=== PATIENT | male | born 1935 | race Caucasian/White ===

== ENCOUNTER 2017-11-09 19:03 | Inpatient (IN) | payer OTHER, MEDICAID ==
[~2017-11-09] VITALS: Ht 175.3 cm; Wt 100.7 kg
[~2017-11-09 19:03] MED LIST: ASA; GLYBURIDE; HCTZ
[2017-11-09 21:59] LABS: BASOPHILS % 1.4 % (0.0-2.0); HEMATOCRIT. 35.6 % (42.0-52.0); HEMOGLOBIN. 11.4 g/dL (14.0-18.0); LYMPHOCYTES % 20.2 % (20.0-50.0); MEAN CORPUSCULAR HEMOGLOBIN 26.7 pg (28.0-32.0); MEAN CORPUSCULAR VOLUME 83.6 fL (80.0-94.0); MEAN PLATELET VOLUME 8.7 fl (7.4-10.4); MONOCYTES % 10.3 % (2.0-8.0); NEUTROPHILS % 65.1 % (40.0-76.0); PLATELET 234 x1000/uL (130-400); RED BLOOD CELL COUNT 4.26 mill/uL (4.7-6.1); RED CELL DISTRIBUTION WIDTH 15.4 % (11.6-14.6)
[2017-11-09 22:04] LABS: INR 1.3; PROTHROMBIN TIME 12.6 sec (9.1-11.1)
[2017-11-09 22:05] LABS: CHLORIDE 101 mEq/L (98-107)
[2017-11-09] MEDS ORDERED: HYDROCODONE/ACETAMINOPHEN 5/325MG TABLET PO PRN (23:30)
[2017-11-09] MEDS ORDERED: IPRATROPIUM/ALBUTEROL 0.5-3(2.5)MG/3ML NEB INH PRN (23:30)
[2017-11-09] MEDS ORDERED: ONDANSETRON 4MG ODT PO PRN (23:30)
[2017-11-09] MEDS ORDERED: DOCUSATE SODIUM 100MG CAPSULE PO PRN (23:30)
[2017-11-09] MEDS ORDERED: MAGNESIUM/ALUMINUM HYDROXIDE/SIMETHICONE 30ML UDC PO PRN (23:30)
[2017-11-09] MEDS ORDERED: CLONIDINE 0.1MG TABLET PO PRN (23:30)
[2017-11-10] VITALS (7 sets, daily range): BP systolic 82–119; BP diastolic 42–69
[2017-11-10] MEDS ORDERED: Advil (05:20)
[2017-11-10] MEDS ORDERED: DEXTROSE 50% WATER 50ML SYRINGE IV PRN (05:30)
[2017-11-10] MEDS: DILTIAZEM HCL 30MG TABLET PO SCH ×2 (05:51→12:56)
[2017-11-10] MEDS: BLOOD SUGAR DIAGNOSTIC STRIP TEST SCH ×4 (06:53→21:19)
[2017-11-10] MEDS: INSULIN LISPRO 100 UNITS/ML SUBCUT SCH ×4 (07:38→21:00)
[2017-11-10] MEDS ORDERED: ENOXAPARIN 30MG/0.3ML SYR SUBCUT SCH (09:00)
[2017-11-10] MEDS ORDERED: ASPIRIN 81MG EC TABLET PO SCH (09:00)
[2017-11-10 09:05] LABS: BASOPHILS % 1.7 % (0.0-2.0); EOSINOPHILS % 2.5 % (0.0-5.0); HEMATOCRIT. 34.9 % (42.0-52.0); HEMOGLOBIN. 11.2 g/dL (14.0-18.0); LYMPHOCYTES % 21.2 % (20.0-50.0); MEAN CORPUSCULAR HEMOGLOBIN 26.7 pg (28.0-32.0); MEAN PLATELET VOLUME 8.7 fl (7.4-10.4); MONOCYTES % 10.7 % (2.0-8.0); NEUTROPHILS % 63.9 % (40.0-76.0); PLATELET 235 x1000/uL (130-400); RED BLOOD CELL COUNT 4.21 mill/uL (4.7-6.1); RED CELL DISTRIBUTION WIDTH 15.5 % (11.6-14.6)
[2017-11-10] MEDS: FUROSEMIDE 40MG/4ML VIAL IV SCH ×2 (09:16→17:31)
[2017-11-10 09:25] LABS: CHLORIDE 100 mEq/L (98-107)
[2017-11-10 09:36] LABS: CREATINE KINASE MB FRACTION 2.2 ng/mL (0.5-3.6)
[2017-11-10 09:42] LABS: LDL CHOLESTEROL 75 mg/dL (5-100)
[2017-11-10 09:44] LABS: HDL CHOLESTEROL 20 mg/dL (40-59)
[2017-11-10] MEDS ORDERED: NA PHOS,M-B/NA PHOS,DI-BA ENEMA 118ML PR NR (12:15)
[2017-11-10] MEDS: POLYETHYLENE GLYCOL 3350 (17GM) 1 DOSE PACK PO SCH (12:56)
[2017-11-10] MEDS ORDERED: MAGNESIUM 1 G PREMIX 100 ML IV NR ×2 (13:00→17:00)
[2017-11-10] MEDS ORDERED: ENOXAPARIN 80MG/0.8ML SYR SUBCUT NR (14:30)
[2017-11-10] MEDS: POTASSIUM CHLORIDE 20MEQ TABLET SR PO SCH (14:41)
[2017-11-10 17:21] LABS: CREATINE KINASE MB FRACTION 1.8 ng/mL (0.5-3.6)
[2017-11-10] MEDS: DILTIAZEM HCL 60MG TABLET PO SCH (17:50)
[2017-11-10] MEDS: ACETAMINOPHEN 325MG TABLET PO PRN (19:05)
[2017-11-10] MEDS ORDERED: ESOM40CA53 MT (19:10)
[2017-11-10] MEDS ORDERED: TRAM50TA3 MT (19:10)
[2017-11-10] MEDS ORDERED: IBUP-2030 MT (19:10)
[2017-11-10] MEDS ORDERED: LISI-649 MT (19:10)
[2017-11-10] MEDS ORDERED: [UNRECOGNIZED DRUG - CODE] MT (19:10)
[2017-11-10] MEDS ORDERED: SITA100T11 MT (19:10)
[2017-11-10] MEDS ORDERED: METF850T2 MT (19:10)
[2017-11-10] MEDS ORDERED: LOVA20TA2 MT (19:10)
[2017-11-10] MEDS ORDERED: ASPI-1159 MT (19:10)
[2017-11-10] MEDS: ATORVASTATIN CALCIUM 10MG TABLET PO SCH (21:18)
[2017-11-10] MEDS: PANTOPRAZOLE 40MG DR TABLET PO SCH (21:19)
[2017-11-11] VITALS: BP 109/60
[2017-11-11 04:00] VITALS: BP 112/71
[2017-11-11] MEDS ORDERED: ENOXAPARIN 100MG/ML SYR SUBCUT SCH (06:00)
[2017-11-11] MEDS: DILTIAZEM HCL 60MG TABLET PO SCH ×4 (06:08→17:54)
[2017-11-11] MEDS: PANTOPRAZOLE 40MG DR TABLET PO SCH (06:09)
[2017-11-11] MEDS: BLOOD SUGAR DIAGNOSTIC STRIP TEST SCH ×4 (06:09→21:00)
[2017-11-11 07:30] LABS: BASOPHILS % 1.3 % (0.0-2.0); EOSINOPHILS % 2.1 % (0.0-5.0); HEMATOCRIT. 34.8 % (42.0-52.0); HEMOGLOBIN. 11.2 g/dL (14.0-18.0); MEAN CORPUSCULAR HEMOGLOBIN 26.6 pg (28.0-32.0); MEAN CORPUSCULAR VOLUME 82.8 fL (80.0-94.0); MEAN PLATELET VOLUME 8.6 fl (7.4-10.4); MONOCYTES % 11.2 % (2.0-8.0); NEUTROPHILS % 62.4 % (40.0-76.0); PLATELET 231 x1000/uL (130-400); RED CELL DISTRIBUTION WIDTH 15.1 % (11.6-14.6)
[2017-11-11] MEDS: INSULIN LISPRO 100 UNITS/ML SUBCUT SCH ×4 (07:50→20:57)
[2017-11-11 08:00] VITALS: BP 91/52
[2017-11-11] MEDS: FUROSEMIDE 40MG/4ML VIAL IV SCH ×2 (09:27→17:53)
[2017-11-11] MEDS: POLYETHYLENE GLYCOL 3350 (17GM) 1 DOSE PACK PO SCH (09:27)
[2017-11-11] MEDS: POTASSIUM CHLORIDE 20MEQ TABLET SR PO SCH (09:27)
[2017-11-11 12:00] VITALS: BP 128/62
[2017-11-11 16:00] VITALS: BP 107/71
[2017-11-11] MEDS: APIXABAN 5 MG TABLET PO SCH (17:53)
[2017-11-11] MEDS: METHYLPREDNISOLONE SOD SUCC 40 MG/ML VIAL IV SCH (17:53)
[2017-11-11 20:00] VITALS: BP 106/59
[2017-11-11] MEDS: ATORVASTATIN CALCIUM 10MG TABLET PO SCH (20:56)
[2017-11-12] VITALS: BP 93/52
[2017-11-12 04:00] VITALS: BP 98/46
[2017-11-12] MEDS: DILTIAZEM HCL 60MG TABLET PO SCH ×5 (05:58→23:50)
[2017-11-12] MEDS: METHYLPREDNISOLONE SOD SUCC 40 MG/ML VIAL IV SCH ×2 (05:59→17:30)
[2017-11-12] MEDS: PANTOPRAZOLE 40MG DR TABLET PO SCH (05:59)
[2017-11-12] MEDS: BLOOD SUGAR DIAGNOSTIC STRIP TEST SCH ×4 (06:57→21:33)
[2017-11-12 08:00] VITALS: BP 104/55
[2017-11-12] MEDS: POLYETHYLENE GLYCOL 3350 (17GM) 1 DOSE PACK PO SCH (08:48)
[2017-11-12] MEDS: FUROSEMIDE 40MG/4ML VIAL IV SCH (08:48)
[2017-11-12] MEDS: POTASSIUM CHLORIDE 20MEQ TABLET SR PO SCH (08:48)
[2017-11-12] MEDS: APIXABAN 5 MG TABLET PO SCH ×2 (08:48→17:29)
[2017-11-12] MEDS: INSULIN LISPRO 100 UNITS/ML SUBCUT SCH ×4 (08:56→21:33)
[2017-11-12 12:00] VITALS: BP 145/67
[2017-11-12 16:00] VITALS: BP 103/47
[2017-11-12] MEDS ORDERED: TEMAZEPAM 15MG CAPSULE PO PRN (18:30)
[2017-11-12] MEDS: FUROSEMIDE 40MG/4ML VIAL IVP SCH (19:38)
[2017-11-12 20:00] VITALS: BP 117/60
[2017-11-12] MEDS: ACETAMINOPHEN 325MG TABLET PO PRN (20:38)
[2017-11-12] MEDS: ATORVASTATIN CALCIUM 10MG TABLET PO SCH (20:38)
[2017-11-12] MEDS ORDERED: FUROSEMIDE 40MG TABLET PO SCH (21:00)
[2017-11-13] VITALS: BP 120/48
[2017-11-13 04:00] VITALS: BP 123/56
[2017-11-13] MEDS: DILTIAZEM HCL 60MG TABLET PO SCH ×3 (06:50→18:22)
[2017-11-13] MEDS: BLOOD SUGAR DIAGNOSTIC STRIP TEST SCH ×4 (06:50→21:29)
[2017-11-13] MEDS: PANTOPRAZOLE 40MG DR TABLET PO SCH (06:50)
[2017-11-13 08:00] VITALS: BP 137/74
[2017-11-13] MEDS: POTASSIUM CHLORIDE 20MEQ TABLET SR PO SCH (08:57)
[2017-11-13] MEDS: APIXABAN 5 MG TABLET PO SCH ×2 (08:57→18:22)
[2017-11-13] MEDS: POLYETHYLENE GLYCOL 3350 (17GM) 1 DOSE PACK PO SCH (08:58)
[2017-11-13] MEDS: FUROSEMIDE 40MG/4ML VIAL IVP SCH ×2 (08:58→18:22)
[2017-11-13] MEDS: INSULIN LISPRO 100 UNITS/ML SUBCUT SCH ×4 (08:59→21:37)
[2017-11-13 12:00] VITALS: BP 160/58
[2017-11-13 16:00] VITALS: BP 119/61
[2017-11-13] MEDS: ACETAMINOPHEN 325MG TABLET PO PRN (17:25)
[2017-11-13 20:10] VITALS: BP 107/56
[2017-11-13] MEDS: ATORVASTATIN CALCIUM 10MG TABLET PO SCH (21:36)
[2017-11-14] VITALS (8 sets, daily range): BP systolic 90–126; BP diastolic 51–73
[2017-11-14] MEDS: DILTIAZEM HCL 60MG TABLET PO SCH ×4 (06:24→18:22)
[2017-11-14] MEDS: PANTOPRAZOLE 40MG DR TABLET PO SCH (06:24)
[2017-11-14] MEDS: BLOOD SUGAR DIAGNOSTIC STRIP TEST SCH ×3 (06:24→18:22)
[2017-11-14 06:54] LABS: BASOPHILS % 0.1 % (0.0-2.0); HEMATOCRIT. 34.4 % (42.0-52.0); LYMPHOCYTES % 7.9 % (20.0-50.0); MEAN CORPUSCULAR HEMOGLOBIN 26.4 pg (28.0-32.0); MEAN CORPUSCULAR VOLUME 82.5 fL (80.0-94.0); MEAN PLATELET VOLUME 8.8 fl (7.4-10.4); PLATELET 242 x1000/uL (130-400); RED BLOOD CELL COUNT 4.17 mill/uL (4.7-6.1)
[2017-11-14 07:14] LABS: CHLORIDE 93 mEq/L (98-107)
[2017-11-14] MEDS: FUROSEMIDE 40MG/4ML VIAL IVP SCH ×2 (08:49→18:22)
[2017-11-14] MEDS: POTASSIUM CHLORIDE 20MEQ TABLET SR PO SCH (08:49)
[2017-11-14] MEDS: POLYETHYLENE GLYCOL 3350 (17GM) 1 DOSE PACK PO SCH (08:49)
[2017-11-14] MEDS: APIXABAN 5 MG TABLET PO SCH ×2 (08:49→18:22)
[2017-11-14] MEDS: INSULIN LISPRO 100 UNITS/ML SUBCUT SCH ×3 (08:51→18:25)
[2017-11-14 16:54] LABS: CLARITY URINE CLEAR (CLEAR); COLOR URINE YELLOW (YELLOW); KETONES URINE NEGATIVE (NEGATIVE); LEUKOCYTE ESTERASE URINE NEGATIVE (NEGATIVE); NITRITE URINE NEGATIVE (NEGATIVE); OCCULT BLOOD URINE NEGATIVE (NEGATIVE); PH URINE 6.5 (4.5-8.0); PROTEIN URINE NEGATIVE (NEGATIVE)
== END 2017-11-14 19:14 | disposition home or self-care (01) | DRG 682 ==
LOC: ER 19:03 → 6WST 22:51 → EDBEDREQTM 23:12 → EDBEDREQ 23:12 → ENRESERV 11-10 02:33
PROVIDERS: ADMIT Internal Medicine; ATTEND Internal Medicine
DX: N17.9 Acute kidney failure, unspecified (principal); I50.23 Acute on chronic systolic (congestive) heart failure; I13.0 Hypertensive heart and chronic kidney disease with heart failure and stage 1 through stage 4 chronic kidney disease, or unspecified chronic kidney disease; D68.59 Other primary thrombophilia; R17 Unspecified jaundice; J98.11 Atelectasis; I42.9 Cardiomyopathy, unspecified; I48.91 Unspecified atrial fibrillation; D64.9 Anemia, unspecified; E11.22 Type 2 diabetes mellitus with diabetic chronic kidney disease; E66.9 Obesity, unspecified; E78.00 Pure hypercholesterolemia, unspecified; E78.5 Hyperlipidemia, unspecified; N18.9 Chronic kidney disease, unspecified; D72.829 Elevated white blood cell count, unspecified; K21.9 Gastro-esophageal reflux disease without esophagitis; D49.511 Neoplasm of unspecified behavior of right kidney; M19.90 Unspecified osteoarthritis, unspecified site; Z79.01 Long term (current) use of anticoagulants; Z79.84 Long term (current) use of oral hypoglycemic drugs; Z79.82 Long term (current) use of aspirin; Z79.899 Other long term (current) drug therapy; Z90.49 Acquired absence of other specified parts of digestive tract; Z68.32 Body mass index [BMI] 32.0-32.9, adult
CPT/HCPCS: 36415; 71045; 74181; 76770; 80048; 80053; 80061; 81003; 82550; 82553; 82962; 83036; 83735; 83880; 84443; 84484; 85025; 85610; 87040; 87086; 93005; 93306; 93970; 96365; 96372; 99291; J1650; J1815; J1940; J2920; J3475; J7050

== ENCOUNTER 2018-06-07 19:15 | Inpatient (IN) | payer OTHER, MEDICAID ==
[~2018-06-07] VITALS: Ht 167.6 cm; Wt 113.2 kg
[~2018-06-07 19:15] MED LIST changes: -ASA; +ASPI-1159 MT; +ESOM40CA53 MT; -GLYBURIDE; -HCTZ; +LISI-649 MT; +LOVA20TA2 MT; +METF-415 MT; +SITA100T11 MT; +TRAM50TA3 MT; +[UNRECOGNIZED DRUG - CODE] MT
[2018-06-07] MEDS ORDERED: FUROSEMIDE 40MG/4ML VIAL IVP ONE (23:00)
[2018-06-08 00:09] LABS: CLARITY URINE CLEAR (CLEAR); COLOR URINE DARK YELLOW (YELLOW); KETONES URINE TRACE (NEGATIVE); LEUKOCYTE ESTERASE URINE NEGATIVE (NEGATIVE); NITRITE URINE NEGATIVE (NEGATIVE); OCCULT BLOOD URINE NEGATIVE (NEGATIVE); PH URINE 5.5 (4.5-8.0); PROTEIN URINE 1+ (NEGATIVE); SPECIFIC GRAVITY URINE 1.029 (1.005-1.030)
[2018-06-08 00:25] LABS: EOSINOPHILS % 1.3 % (0.0-5.0); HEMATOCRIT. 32.9 % (42.0-52.0); HEMOGLOBIN. 10.5 g/dL (14.0-18.0); LYMPHOCYTES % 21.4 % (20.0-50.0); MEAN CORPUSCULAR HEMOGLOBIN 26.3 pg (28.0-32.0); MEAN CORPUSCULAR VOLUME 82.2 fL (80.0-94.0); MEAN PLATELET VOLUME 8.6 fl (7.4-10.4); MONOCYTES % 10.8 % (2.0-8.0); NEUTROPHILS % 65.5 % (40.0-76.0); PLATELET 197 x1000/uL (130-400)
[2018-06-08 00:34] LABS: CHLORIDE 105 mEq/L (98-107)
[2018-06-08] MEDS: IPRATROPIUM/ALBUTEROL 0.5-3(2.5)MG/3ML NEB HHN SCH ×2 (04:10→23:53)
[2018-06-08] MEDS ORDERED: OMEP40CA34 MT (10:39)
[2018-06-08 10:43] VITALS: BP 119/48
[2018-06-08] MEDS ORDERED: CLONIDINE 0.1MG TABLET PO PRN (11:00)
[2018-06-08] MEDS ORDERED: ACETAMINOPHEN 650MG SUPP PR PRN (11:00)
[2018-06-08] MEDS ORDERED: LORAZEPAM 0.5MG TABLET PO PRN (11:00)
[2018-06-08] MEDS ORDERED: ONDANSETRON HCL 4MG/2ML INJ IV PRN (11:00)
[2018-06-08] MEDS ORDERED: DOCUSATE SODIUM 100MG CAPSULE PO PRN (11:00)
[2018-06-08] MEDS ORDERED: DIPHENHYDRAMINE 50MG/ML VIAL IV PRN (11:00)
[2018-06-08] MEDS ORDERED: IPRATROPIUM/ALBUTEROL 0.5-3(2.5)MG/3ML NEB INH PRN (11:00)
[2018-06-08] MEDS ORDERED: MAGNESIUM/ALUMINUM HYDROXIDE/SIMETHICONE 30ML UDC PO PRN (11:00)
[2018-06-08] MEDS ORDERED: DEXTROSE 50% WATER 50ML SYRINGE IV PRN (11:15)
[2018-06-08] MEDS: ACETAMINOPHEN 325MG TABLET PO PRN (11:45)
[2018-06-08 12:20] VITALS: BP 125/72
[2018-06-08] MEDS: INSULIN LISPRO 100 UNITS/ML SUBCUT SCH ×3 (12:50→21:00)
[2018-06-08] MEDS: BLOOD SUGAR DIAGNOSTIC STRIP TEST SCH ×3 (12:56→21:11)
[2018-06-08] MEDS ORDERED: LEVOFLOXACIN 500MG PREMIX 100 ML IV NR (13:00)
[2018-06-08 13:55] LABS: BG BASE EXCESS 1.6 mmol/L (-2.0-2.0); BG CARBOXYHEMOGLOBIN 0.9 % (0.5-1.5); BG DEOXYHEMOGLOBIN 4.2 % (0.0-5.0); BG FRACTION INSPIRED OXYGEN 21; BG METHEMOGLOBIN 0.1 % (0.0-1.5); BG OXYGEN SATURATION 95.8 % (92.0-98.5); BG OXYHEMOGLOBIN 94.8 % (94.0-97.0); BG PCO2 40.1 mmHg (35.0-45.0); BG PH 7.429 (7.350-7.450); BG PO2 80.7 mmHg (75.0-100.0); BG SAMPLE SITE RIGHT BRACHIAL; BG TOTAL HEMOGLOBIN 11.8 g/dL (12.0-18.0); BG VENT MODE ROOM AIR
[2018-06-08] MEDS: METOPROLOL TARTRATE 25MG TABLET PO SCH ×2 (15:04→20:35)
[2018-06-08] MEDS: LEVOFLOXACIN 250MG PREMIX 50 ML IV SCH (15:05)
[2018-06-08] MEDS: FUROSEMIDE 40MG/4ML VIAL IV SCH ×2 (17:15→19:08)
[2018-06-08 20:00] VITALS: BP 86/55
[2018-06-08 20:26] VITALS: BP_SYST 83; BP_SYST 95; BP_DIAS 35; BP_DIAS 59
[2018-06-08 21:05] LABS: HEMATOCRIT 34.2 % (42.0-52.0); HEMOGLOBIN 10.4 g/dL (14.0-18.0); MEAN CORPUSCULAR HEMOGLOBIN 25.4 pg (28.0-32.0); MEAN CORPUSCULAR VOLUME 83.3 fL (80.0-94.0); PLATELET 188 x1000/uL (130-400); RED CELL DISTRIBUTION WIDTH 17.4 % (11.6-14.6)
[2018-06-08] MEDS: ENOXAPARIN 40MG/0.4ML SYR SUBCUT SCH (21:34)
[2018-06-09] VITALS (7 sets, daily range): BP systolic 92–103; BP diastolic 47–69
[2018-06-09] MEDS: IPRATROPIUM/ALBUTEROL 0.5-3(2.5)MG/3ML NEB HHN SCH ×6 (00:10→20:19)
[2018-06-09] MEDS: BLOOD SUGAR DIAGNOSTIC STRIP TEST SCH ×4 (06:29→20:53)
[2018-06-09] MEDS: FUROSEMIDE 40MG/4ML VIAL IV SCH ×2 (06:49→17:13)
[2018-06-09 06:59] LABS: BASOPHILS % 1.1 % (0.0-2.0); CHLORIDE 103 mEq/L (98-107); HEMATOCRIT. 33.5 % (42.0-52.0); HEMOGLOBIN. 10.7 g/dL (14.0-18.0); MEAN CORPUSCULAR VOLUME 81.7 fL (80.0-94.0); MEAN PLATELET VOLUME 8.9 fl (7.4-10.4); MONOCYTES % 13.7 % (2.0-8.0); NEUTROPHILS % 65.2 % (40.0-76.0); PLATELET 197 x1000/uL (130-400); RED CELL DISTRIBUTION WIDTH 17.4 % (11.6-14.6)
[2018-06-09 07:22] LABS: T4 FREE 1.26 ng/dL (0.76-1.46)
[2018-06-09] MEDS: INSULIN LISPRO 100 UNITS/ML SUBCUT SCH ×4 (07:50→20:53)
[2018-06-09] MEDS ORDERED: FUROSEMIDE 40MG/4ML VIAL IV SCH (09:00)
[2018-06-09] MEDS: METOPROLOL TARTRATE 25MG TABLET PO SCH ×2 (09:00→21:00)
[2018-06-09 10:07] LABS: *BARBITURATES SCREEN URINE NEGATIVE (NEGATIVE); *BENZODIAZEPINES SCREEN URINE NEGATIVE (NEGATIVE); *COCAINE SCREEN URINE NEGATIVE (NEGATIVE)
[2018-06-09 10:08] LABS: CANNABINOID URINE SCREEN NEGATIVE (NEGATIVE); METHADONE URINE SCREEN NEGATIVE (NEGATIVE); OPIATES URINE SCREEN NEGATIVE (NEGATIVE); PHENCYCLIDINE URINE SCREEN NEGATIVE (NEGATIVE)
[2018-06-09 10:11] LABS: *AMPHETAMINES SCREEN URINE NEGATIVE (NEGATIVE)
[2018-06-09] MEDS: ACETAMINOPHEN 325MG TABLET PO PRN (12:42)
[2018-06-09] MEDS: HYDROCODONE/ACETAMINOPHEN 5/325MG TABLET PO PRN (16:38)
[2018-06-09] MEDS: LEVOFLOXACIN 250MG PREMIX 50 ML IV SCH (17:12)
[2018-06-09] MEDS: ENOXAPARIN 40MG/0.4ML SYR SUBCUT SCH (20:53)
[2018-06-10] VITALS: BP 106/60
[2018-06-10 04:00] VITALS: BP 113/67
[2018-06-10] MEDS: IPRATROPIUM/ALBUTEROL 0.5-3(2.5)MG/3ML NEB HHN SCH ×6 (04:38→23:18)
[2018-06-10] MEDS: FUROSEMIDE 40MG/4ML VIAL IV SCH ×2 (06:24→16:46)
[2018-06-10] MEDS: BLOOD SUGAR DIAGNOSTIC STRIP TEST SCH ×4 (06:32→20:33)
[2018-06-10] MEDS: INSULIN LISPRO 100 UNITS/ML SUBCUT SCH ×4 (07:50→20:36)
[2018-06-10 08:05] VITALS: BP 94/50
[2018-06-10] MEDS: METOPROLOL TARTRATE 25MG TABLET PO SCH ×3 (09:18→19:14)
[2018-06-10] MEDS: HYDROCODONE/ACETAMINOPHEN 5/325MG TABLET PO PRN ×2 (11:24→16:07)
[2018-06-10 12:00] VITALS: BP 101/56
[2018-06-10] MEDS: MAGNESIUM OXIDE 400MG TABLET PO SCH ×2 (12:19→16:47)
[2018-06-10] MEDS ORDERED: MAGNESIUM 2 G PREMIX 50 ML IV SCH (13:00)
[2018-06-10 16:00] VITALS: BP 115/73
[2018-06-10] MEDS: LEVOFLOXACIN 250MG PREMIX 50 ML IV SCH (16:46)
[2018-06-10 20:00] VITALS: BP 90/50
[2018-06-10] MEDS: ENOXAPARIN 40MG/0.4ML SYR SUBCUT SCH (20:33)
[2018-06-10] MEDS: GUAIFENESIN 200MG/10ML SUGAR FREE UDC PO PRN (23:07)
[2018-06-11] VITALS (7 sets, daily range): BP systolic 91–103; BP diastolic 43–69
[2018-06-11] MEDS: GUAIFENESIN 200MG/10ML SUGAR FREE UDC PO PRN (03:27)
[2018-06-11] MEDS: IPRATROPIUM/ALBUTEROL 0.5-3(2.5)MG/3ML NEB HHN SCH ×5 (05:05→20:36)
[2018-06-11] MEDS: METOPROLOL TARTRATE 25MG TABLET PO SCH ×4 (06:00→21:03)
[2018-06-11 06:29] LABS: BASOPHILS % 0.9 % (0.0-2.0); EOSINOPHILS % 3.4 % (0.0-5.0); HEMATOCRIT. 32.2 % (42.0-52.0); HEMOGLOBIN. 9.9 g/dL (14.0-18.0); LYMPHOCYTES % 21.2 % (20.0-50.0); MEAN CORPUSCULAR HEMOGLOBIN 25.5 pg (28.0-32.0); MEAN CORPUSCULAR VOLUME 82.6 fL (80.0-94.0); MEAN PLATELET VOLUME 8.9 fl (7.4-10.4); MONOCYTES % 14.2 % (2.0-8.0); NEUTROPHILS % 60.3 % (40.0-76.0); PLATELET 208 x1000/uL (130-400); RED BLOOD CELL COUNT 3.89 mill/uL (4.7-6.1); RED CELL DISTRIBUTION WIDTH 17.7 % (11.6-14.6)
[2018-06-11] MEDS: FUROSEMIDE 40MG/4ML VIAL IV SCH (06:29)
[2018-06-11] MEDS: BLOOD SUGAR DIAGNOSTIC STRIP TEST SCH ×4 (07:25→21:00)
[2018-06-11] MEDS: INSULIN LISPRO 100 UNITS/ML SUBCUT SCH ×4 (07:50→21:27)
[2018-06-11] MEDS ORDERED: MAGNESIUM/ALUMINUM HYDROXIDE/SIMETHICONE 30ML UDC PO PRN ×2 (08:15→14:30)
[2018-06-11] MEDS: MAGNESIUM OXIDE 400MG TABLET PO SCH ×2 (08:55→16:58)
[2018-06-11] MEDS ORDERED: ASPIRIN/SOD BICARB/CITRIC ACID 324MG TAB EFF PO NR (13:00)
[2018-06-11] MEDS: LEVOFLOXACIN 250MG PREMIX 50 ML IV SCH (13:08)
[2018-06-11] MEDS: DILTIAZEM HCL 30MG TABLET PO SCH ×2 (14:00→21:04)
[2018-06-11] MEDS: OMEPRAZOLE 20MG CAPSULE EXTENDED RELEASE PO SCH ×2 (15:19→21:10)
[2018-06-11] MEDS: ENOXAPARIN 40MG/0.4ML SYR SUBCUT SCH (21:10)
[2018-06-11] MEDS: ACETAMINOPHEN 325MG TABLET PO PRN (22:55)
[2018-06-12] VITALS (8 sets, daily range): BP systolic 96–108; BP diastolic 50–64
[2018-06-12] MEDS: IPRATROPIUM/ALBUTEROL 0.5-3(2.5)MG/3ML NEB HHN SCH ×6 (00:48→19:49)
[2018-06-12] MEDS: DILTIAZEM HCL 30MG TABLET PO SCH ×3 (05:25→21:31)
[2018-06-12] MEDS: METOPROLOL TARTRATE 25MG TABLET PO SCH (05:26)
[2018-06-12] MEDS: HYDROCODONE/ACETAMINOPHEN 5/325MG TABLET PO PRN ×2 (05:59→21:32)
[2018-06-12] MEDS: OMEPRAZOLE 20MG CAPSULE EXTENDED RELEASE PO SCH ×2 (05:59→21:34)
[2018-06-12] MEDS: BLOOD SUGAR DIAGNOSTIC STRIP TEST SCH ×4 (06:05→21:33)
[2018-06-12] MEDS: INSULIN LISPRO 100 UNITS/ML SUBCUT SCH ×4 (06:05→21:36)
[2018-06-12 07:02] LABS: BASOPHILS % 0.8 % (0.0-2.0); EOSINOPHILS % 1.8 % (0.0-5.0); HEMATOCRIT. 32.4 % (42.0-52.0); HEMOGLOBIN. 10.1 g/dL (14.0-18.0); LYMPHOCYTES % 15.9 % (20.0-50.0); MEAN CORPUSCULAR HEMOGLOBIN 25.5 pg (28.0-32.0); MEAN CORPUSCULAR VOLUME 82.1 fL (80.0-94.0); MEAN PLATELET VOLUME 8.3 fl (7.4-10.4); MONOCYTES % 13.2 % (2.0-8.0); NEUTROPHILS % 68.3 % (40.0-76.0); PLATELET 218 x1000/uL (130-400); RED BLOOD CELL COUNT 3.95 mill/uL (4.7-6.1)
[2018-06-12] MEDS: MAGNESIUM OXIDE 400MG TABLET PO SCH ×2 (09:40→16:17)
[2018-06-12] MEDS: FUROSEMIDE 40MG/4ML VIAL IV SCH (09:40)
[2018-06-12] MEDS: APIXABAN 2.5 MG TABLET PO SCH ×2 (12:55→21:32)
[2018-06-12] MEDS: LEVOFLOXACIN 250MG TABLET PO SCH (12:55)
[2018-06-12 16:39] LABS: BG BASE EXCESS 4.2 mmol/L (-2.0-2.0); BG CARBOXYHEMOGLOBIN 0.5 % (0.5-1.5); BG DEOXYHEMOGLOBIN 7.9 % (0.0-5.0); BG FRACTION INSPIRED OXYGEN 21; BG HCO3 ACT 29.9 mmol/L (22.0-26.0); BG METHEMOGLOBIN 0.3 % (0.0-1.5); BG OXYHEMOGLOBIN 91.3 % (94.0-97.0); BG PCO2 50.1 mmHg (35.0-45.0); BG PH 7.394 (7.350-7.450); BG PO2 64.6 mmHg (75.0-100.0); BG SAMPLE SITE RIGHT RADIAL; BG TOTAL HEMOGLOBIN 10.7 g/dL (12.0-18.0); BG VENT MODE ROOM AIR
[2018-06-12] MEDS: CARVEDILOL 6.25 MG TABLET PO SCH (21:00)
[2018-06-12] MEDS: ATORVASTATIN CALCIUM 20MG TABLET PO SCH (21:32)
[2018-06-13] VITALS (7 sets, daily range): BP systolic 105–125; BP diastolic 45–74
[2018-06-13] MEDS: IPRATROPIUM/ALBUTEROL 0.5-3(2.5)MG/3ML NEB HHN SCH ×6 (01:13→21:26)
[2018-06-13] MEDS: OMEPRAZOLE 20MG CAPSULE EXTENDED RELEASE PO SCH ×2 (06:25→21:02)
[2018-06-13] MEDS: DILTIAZEM HCL 30MG TABLET PO SCH ×3 (06:25→21:01)
[2018-06-13] MEDS: BLOOD SUGAR DIAGNOSTIC STRIP TEST SCH ×4 (06:25→21:03)
[2018-06-13] MEDS: INSULIN LISPRO 100 UNITS/ML SUBCUT SCH ×4 (06:27→21:00)
[2018-06-13 06:31] LABS: BASOPHILS % 0.8 % (0.0-2.0); EOSINOPHILS % 2.2 % (0.0-5.0); HEMATOCRIT. 30.4 % (42.0-52.0); HEMOGLOBIN. 9.7 g/dL (14.0-18.0); LYMPHOCYTES % 16.6 % (20.0-50.0); MEAN CORPUSCULAR HEMOGLOBIN 25.9 pg (28.0-32.0); MEAN CORPUSCULAR VOLUME 81.1 fL (80.0-94.0); MEAN PLATELET VOLUME 8.3 fl (7.4-10.4); MONOCYTES % 11.3 % (2.0-8.0); NEUTROPHILS % 69.1 % (40.0-76.0); PLATELET 219 x1000/uL (130-400); RED BLOOD CELL COUNT 3.75 mill/uL (4.7-6.1); RED CELL DISTRIBUTION WIDTH 17.7 % (11.6-14.6)
[2018-06-13] MEDS: CARVEDILOL 6.25 MG TABLET PO SCH ×2 (08:24→21:00)
[2018-06-13] MEDS: FUROSEMIDE 40MG/4ML VIAL IV SCH (09:00)
[2018-06-13] MEDS: MAGNESIUM OXIDE 400MG TABLET PO SCH ×2 (10:22→18:16)
[2018-06-13] MEDS: APIXABAN 2.5 MG TABLET PO SCH ×2 (10:22→21:02)
[2018-06-13] MEDS: LEVOFLOXACIN 250MG TABLET PO SCH (14:24)
[2018-06-13] MEDS: ATORVASTATIN CALCIUM 20MG TABLET PO SCH (21:02)
[2018-06-13] MEDS: ACETAMINOPHEN 325MG TABLET PO PRN (21:03)
[2018-06-14] VITALS: BP 118/61
[2018-06-14] MEDS: IPRATROPIUM/ALBUTEROL 0.5-3(2.5)MG/3ML NEB HHN SCH ×5 (01:00→20:59)
[2018-06-14 04:00] VITALS: BP 112/67
[2018-06-14] MEDS: OMEPRAZOLE 20MG CAPSULE EXTENDED RELEASE PO SCH ×2 (06:56→21:15)
[2018-06-14] MEDS: DILTIAZEM HCL 30MG TABLET PO SCH ×3 (06:56→21:17)
[2018-06-14] MEDS: BLOOD SUGAR DIAGNOSTIC STRIP TEST SCH ×4 (06:56→21:16)
[2018-06-14] MEDS: INSULIN LISPRO 100 UNITS/ML SUBCUT SCH ×4 (06:56→21:11)
[2018-06-14 07:32] LABS: HEMATOCRIT 31.2 % (42.0-52.0); HEMOGLOBIN 9.8 g/dL (14.0-18.0); MEAN CORPUSCULAR HEMOGLOBIN 25.6 pg (28.0-32.0); MEAN CORPUSCULAR VOLUME 81.3 fL (80.0-94.0); PLATELET 219 x1000/uL (130-400); RED BLOOD CELL COUNT 3.84 mill/uL (4.7-6.1); RED CELL DISTRIBUTION WIDTH 17.9 % (11.6-14.6)
[2018-06-14 08:00] VITALS: BP 112/67
[2018-06-14] MEDS: CARVEDILOL 6.25 MG TABLET PO SCH ×2 (09:00→21:00)
[2018-06-14] MEDS: APIXABAN 2.5 MG TABLET PO SCH ×2 (09:49→21:15)
[2018-06-14] MEDS: MAGNESIUM OXIDE 400MG TABLET PO SCH ×2 (09:49→17:50)
[2018-06-14] MEDS: FUROSEMIDE 40MG/4ML VIAL IV SCH (09:49)
[2018-06-14 12:00] VITALS: BP 137/52
[2018-06-14] MEDS: LEVOFLOXACIN 250MG TABLET PO SCH (14:25)
[2018-06-14] MEDS: ACETAMINOPHEN 325MG TABLET PO PRN ×2 (14:36→23:29)
[2018-06-14] MEDS ORDERED: CARVEDILOL 3.125 MG TABLET PO NR (15:30)
[2018-06-14 16:00] VITALS: BP 132/65
[2018-06-14 20:00] VITALS: BP 103/44
[2018-06-14] MEDS: ATORVASTATIN CALCIUM 20MG TABLET PO SCH (21:15)
[2018-06-15] VITALS: BP 132/58
[2018-06-15] MEDS: IPRATROPIUM/ALBUTEROL 0.5-3(2.5)MG/3ML NEB HHN SCH ×6 (00:12→21:01)
[2018-06-15 04:00] VITALS: BP 112/65
[2018-06-15] MEDS: ACETAMINOPHEN 325MG TABLET PO PRN ×2 (05:46→15:49)
[2018-06-15] MEDS: DILTIAZEM HCL 30MG TABLET PO SCH ×3 (05:47→22:08)
[2018-06-15] MEDS: OMEPRAZOLE 20MG CAPSULE EXTENDED RELEASE PO SCH ×2 (06:22→22:03)
[2018-06-15 06:30] LABS: HEMATOCRIT 30.2 % (42.0-52.0); HEMOGLOBIN 9.5 g/dL (14.0-18.0); MEAN CORPUSCULAR HEMOGLOBIN 25.4 pg (28.0-32.0); PLATELET 222 x1000/uL (130-400); RED BLOOD CELL COUNT 3.73 mill/uL (4.7-6.1); RED CELL DISTRIBUTION WIDTH 17.7 % (11.6-14.6)
[2018-06-15] MEDS: BLOOD SUGAR DIAGNOSTIC STRIP TEST SCH ×4 (06:31→21:00)
[2018-06-15] MEDS: INSULIN LISPRO 100 UNITS/ML SUBCUT SCH ×4 (07:43→22:28)
[2018-06-15 08:13] VITALS: BP 103/48
[2018-06-15] MEDS: CARVEDILOL 6.25 MG TABLET PO SCH ×2 (08:20→22:13)
[2018-06-15] MEDS: APIXABAN 2.5 MG TABLET PO SCH ×2 (08:24→22:02)
[2018-06-15] MEDS: FUROSEMIDE 40MG TABLET PO SCH (08:24)
[2018-06-15] MEDS: MAGNESIUM OXIDE 400MG TABLET PO SCH ×2 (08:26→17:38)
[2018-06-15 12:24] VITALS: BP 119/61
[2018-06-15] MEDS: LEVOFLOXACIN 250MG TABLET PO SCH (13:01)
[2018-06-15 16:00] VITALS: BP 117/57
[2018-06-15 20:00] VITALS: BP 114/63
[2018-06-15] MEDS: ATORVASTATIN CALCIUM 20MG TABLET PO SCH (22:02)
[2018-06-16] VITALS: BP 100/57
[2018-06-16] MEDS: IPRATROPIUM/ALBUTEROL 0.5-3(2.5)MG/3ML NEB HHN SCH ×4 (02:57→12:33)
[2018-06-16 04:00] VITALS: BP 105/50
[2018-06-16] MEDS: DILTIAZEM HCL 30MG TABLET PO SCH (06:00)
[2018-06-16] MEDS: ACETAMINOPHEN 325MG TABLET PO PRN (07:32)
[2018-06-16] MEDS: BLOOD SUGAR DIAGNOSTIC STRIP TEST SCH ×2 (07:48→12:20)
[2018-06-16] MEDS: OMEPRAZOLE 20MG CAPSULE EXTENDED RELEASE PO SCH (08:01)
[2018-06-16] MEDS: CARVEDILOL 6.25 MG TABLET PO SCH (08:11)
[2018-06-16] MEDS: MAGNESIUM OXIDE 400MG TABLET PO SCH (08:11)
[2018-06-16] MEDS: FUROSEMIDE 40MG TABLET PO SCH (08:12)
[2018-06-16] MEDS: APIXABAN 2.5 MG TABLET PO SCH (08:12)
[2018-06-16] MEDS: INSULIN LISPRO 100 UNITS/ML SUBCUT SCH ×2 (08:13→13:03)
[2018-06-16 08:38] VITALS: BP 109/56
[2018-06-16 12:17] VITALS: BP 100/44
[2018-06-16] MEDS: LEVOFLOXACIN 250MG TABLET PO SCH (13:06)
[2018-06-16 14:21] VITALS: BP 100/44
== END 2018-06-16 15:59 | disposition home or self-care (01) | DRG 291 ==
LOC: ER 06-08 02:48 → 6WST 06-08 03:00 → ENRESERV 06-08 07:54 → 6WST 06-08 09:45
PROVIDERS: ADMIT Internal Medicine; ATTEND Internal Medicine
DX: I13.0 Hypertensive heart and chronic kidney disease with heart failure and stage 1 through stage 4 chronic kidney disease, or unspecified chronic kidney disease (principal); I50.23 Acute on chronic systolic (congestive) heart failure; J18.1 Lobar pneumonia, unspecified organism; J96.90 Respiratory failure, unspecified, unspecified whether with hypoxia or hypercapnia; Z68.41 Body mass index [BMI] 40.0-44.9, adult; I48.1 Persistent atrial fibrillation; D68.59 Other primary thrombophilia; J44.0 Chronic obstructive pulmonary disease with (acute) lower respiratory infection; R18.8 Other ascites; N17.9 Acute kidney failure, unspecified; I47.2 Ventricular tachycardia; E66.2 Morbid (severe) obesity with alveolar hypoventilation; I42.9 Cardiomyopathy, unspecified; N18.9 Chronic kidney disease, unspecified; N50.89 Other specified disorders of the male genital organs; E11.8 Type 2 diabetes mellitus with unspecified complications; F17.210 Nicotine dependence, cigarettes, uncomplicated; I86.1 Scrotal varices; K21.9 Gastro-esophageal reflux disease without esophagitis; D64.9 Anemia, unspecified; I95.9 Hypotension, unspecified; M19.90 Unspecified osteoarthritis, unspecified site; E11.22 Type 2 diabetes mellitus with diabetic chronic kidney disease; E78.5 Hyperlipidemia, unspecified; N28.89 Other specified disorders of kidney and ureter; Z79.899 Other long term (current) drug therapy; Z79.82 Long term (current) use of aspirin; Z79.84 Long term (current) use of oral hypoglycemic drugs
CPT/HCPCS: 36415; 36600; 71045; 76705; 76770; 76870; 80048; 80061; 80076; 80305; 82375; 82805; 82962; 83036; 83735; 83880; 84439; 84443; 84484; 85027; 93005; 93306; 93970; 93976; 94640; 96374; 97116; 97162; 99285; C1893; J1650; J1815; J1940; J1956; J3475; J7040; J7620